=== PATIENT | female | born 1995 | race Caucasian/White ===

== ENCOUNTER 2016-08-19 22:58 | Emergency (ER) | payer OTHER ==
[~2016-08-19] VITALS: Ht 165.1 cm; Wt 53.0 kg
[~2016-08-19 22:58] MED LIST: BCPILLS PO; CITA20TA9 PO
[2016-08-19 23:03] VITALS: BP 146/76; PULSE 111; TEMP 36.8; O2SAT 98; Ht 165.1 cm; Wt 53.0 kg
--- NOTE | 2016-08-19 23:32 | EMERGENCY ROOM VISIT NOTE ---
History Report prepared by Romanaibandree: Gonzalez Negrete Under the Supervision of: Dr. Ja Galo D.O. First contact with patient: 23:24 Chief Complaint: ANXIETY Stated Complaint: NUMBNESS IN LEGS, VISION BLACKOUTS History of Present Illness The patient is a 20 year old female who presents to the Emergency Room with complaints of intermittent loss of vision for the past two weeks. The patient states that she has episodes where she loses vision in both of her eyes, described as "blackouts." The episodes usually last 5-10 minutes. Her vision is currently at baseline. The patient also has a headache. She sometimes hears "buzzing" in her ears when she tries to sleep at night. The patient denies trouble ambulating. The patient has a history of anxiety and panic attacks, for which she is prescribed Xanax. She had a panic attack earlier today. She has never been evaluated for her neurologic symptoms. The patient denies any family history of MS, brain aneurysms or tumors. Source of History: patient Onset: two weeks ago Position: eye (bilateral) Quality: other (loss of vision) Timing: intermittent Associated Symptoms: + headache Review of Systems See HPI for pertinent positives and negatives. A total of ten systems were reviewed and were otherwise negative. Past Medical & Surgical Medical Problems: (1) Acute bronchitis (2) ADHD (attention deficit hyperactivity disorder) (3) Anemia (4) Anorexia (5) Bronchitis (6) Strep throat Family History No significant family history Social History Smoking Status: Never Smoker Drug Use: none Marital Status: single Occupation Status: [employer] student Current/Historical Medications Scheduled Ethinyl Estradiol/Norethindr (Loestrin 05/15-), 1 TAB PO DAILY Vilazodone Hcl (Viibryd), 1 TAB PO DAILY Scheduled PRN Alprazolam (Xanax), 0.5 MG PO DAILY PRN for Anxiety Lisdexamfetamine Dimesylate (Vyvanse), 20 MG PO DAILY PRN for ADHD Trazodone Hcl (Trazodone), 50 MG PO HS PRN for Sleep Allergies Coded Allergies: Meperidine (Verified Allergy, Intermediate, hives, 08/19/16) Sulfamethoxazole w/Trimethoprim (Verified Allergy, Intermediate, HIVES, ) Physical Exam Vital Signs Date Time Temp Pulse Resp B/P Pulse Ox O2 Delivery O2 Flow Rate FiO2 08/19/16 23:03 36.8 111 26 146/76 98 Room Air Physical Exam GENERAL: Awake, alert, well-appearing, in no distress HENT: Normocephalic, atraumatic. Oropharynx unremarkable. EYES: Normal conjunctiva. Sclera non-icteric. NECK: Supple. No nuchal rigidity. FROM. No JVD. RESPIRATORY: Clear to auscultation. CARDIAC: Regular rate, normal rhythm. Extremities warm and well perfused. Pulses equal. ABDOMEN: Soft, non-distended. No tenderness to palpation. No rebound or guarding. No masses. RECTAL: Deferred. MUSCULOSKELETAL: Chest examination reveals no tenderness. The back is symmetrical on inspection without obvious abnormality. There is no CVA tenderness to palpation. No joint edema. LOWER EXTREMITIES: Calves are equal size bilaterally and non-tender. No edema. No discoloration. NEURO: Normal sensorium. No sensory or motor deficits noted. SKIN: No rash or jaundice noted. PSYCH: Anxious appearing. Medical Decision & Procedures ER Provider Diagnostic Interpretation: CT results as stated below per my review and radiologist interpretation. CT HEAD: Unremarkable examination. Radiologist: Germán Acosta MD. Laboratory Results Test 08/19/16 23:35 08/19/16 23:56 Urine Test NEG (NEG) Bedside Glucose 96 mg/dl (70-90) Laboratory results reviewed by me ED Course 2320: The patient was evaluated in room B4b. A complete history and physical exam was performed. 0100: I reevaluated the patient. Discussed results and discharge instructions: She verbalized understanding and agreement. The patient is ready for discharge. Medical Decision Differential diagnosis includes hypoglycemia, anxiety, panic attack, brain tumor. Repeat examination patient's nonfocal smiling in no distress 1 5 AM. I discussed the workup with the patient Impression Primary Impression: Acute anxiety Scribe Attestation The scribe's documentation has been prepared under my direction and personally reviewed by me in its entirety. I confirm that the note above accurately reflects all work, treatment, procedures, and medical decision making performed by me. Departure Information Dispostion Home / Self-Care Referrals No Doctor, Assigned (PCP) Patient Instructions Anxiety Disorder, My [facility]
[2016-08-19] MEDS ORDERED: ALPR-411 PO (23:37)
[2016-08-19] MEDS ORDERED: VILA1TAB PO (23:37)
[2016-08-19] MEDS ORDERED: TRAZ50TA35 PO (23:37)
[2016-08-19] MEDS ORDERED: LISD20CA PO (23:37)
[2016-08-19] MEDS ORDERED: NORE-41 PO (23:37)
--- NOTE | 2016-08-20 07:11 | DIAGNOSTIC IMAGING REPORT ---
CT OF THE HEAD WITHOUT CONTRAST CLINICAL HISTORY: Dizzy. COMPARISON STUDY: No previous studies for comparison. CT DOSE: 537.48 mGy.cm TECHNIQUE: Helical axial images of the head were obtained without IV contrast. Automated exposure control was utilized for the study. FINDINGS: No acute intracranial hemorrhage, midline shift or mass effect is present. Ventricular system is normal. Basilar cisterns are patent. There are no extra-axial collections. Arrington-white differentiation is maintained. There are no findings to suggest acute dural sinus thrombosis or acute territorial infarct. There is no calvarial fracture. Visualized portions of the sinuses and the mastoid air cells are clear. IMPRESSION: No acute intracranial findings. Electronically signed by: Ehsan Chino M.D. 08/20/2016 7:10 AM Dictated Date/Time: 08/20/2016 7:08 AM
== END 2016-08-20 01:09 | disposition home or self-care (01) ==
LOC: C.EDB 23:00
DX: F41.9 Anxiety disorder, unspecified (principal); F90.9 Attention-deficit hyperactivity disorder, unspecified type; D64.9 Anemia, unspecified; R63.0 Anorexia; Z79.899 Other long term (current) drug therapy